=== PATIENT | female | born 1945 | race Caucasian/White ===

== ENCOUNTER 2018-08-20 07:33 | Emergency (ER) | payer MEDICARE, MEDICAID ==
[~2018-08-20] VITALS: Ht 160 cm; Wt 58.2 kg
[~2018-08-20 07:33] MED LIST: ASPI-974 PO; HYDR-4353 PO; IBUP-1984 PO
[2018-08-20] MEDS ORDERED: proparacaine 0.5% ophthalmic drops 15ml EACHEYE ONE (08:00)
[2018-08-20] MEDS ORDERED: ACYC-202 PO (09:16)
[2018-08-20] MEDS ORDERED: DEXT15DR7 RIGHTEYE (09:16)
[2018-08-20] MEDS ORDERED: ERYT1OIN6 RIGHTEYE (09:16)
[2018-08-20 09:35] VITALS: BP 176/87
[2018-08-23] MEDS ORDERED: CEPH500C5 PO (10:39)
== END 2018-08-20 09:38 | disposition home or self-care (01) ==
LOC: ER 07:34
DX: H57.11 Ocular pain, right eye (principal); G89.29 Other chronic pain; Z88.5 Allergy status to narcotic agent; Z79.82 Long term (current) use of aspirin; Z79.2 Long term (current) use of antibiotics; Z79.899 Other long term (current) drug therapy
CPT/HCPCS: 99283

== ENCOUNTER 2018-08-21 07:50 | Emergency (ER) | payer MEDICARE, MEDICAID ==
[~2018-08-21] VITALS: Ht 160 cm; Wt 58.2 kg
[~2018-08-21 07:50] MED LIST changes: +ACYC-202 PO; +DEXT15DR7 RIGHTEYE; +ERYT1OIN6 RIGHTEYE
--- NOTE | 2018-08-21 08:05 | NUR ---
PATIENT STATES SHE WAS HERE YESTERDAY WITH PAIN, REDNESS, SWELLING IN RIGHT EYE. STATES MEDS ARE CAUSING NEGATIVE SIDE EFFECTS AND EYE IS NOT IMPROVING. REDNESS TO SCLERA BILAT, INCREASED IN RIGHT EYE. UNABLE TO TOLERATE ERYTHROMYCIN OINT AFTER USING TWICE YESTERDAY.
[2018-08-21 08:18] VITALS: BP 168/93
[2018-08-23] MEDS ORDERED: CEPH500C5 PO (10:39)
== END 2018-08-21 08:20 | disposition home or self-care (01) ==
LOC: ER 07:50
DX: H10.9 Unspecified conjunctivitis (principal); G89.29 Other chronic pain; M19.90 Unspecified osteoarthritis, unspecified site; Z88.5 Allergy status to narcotic agent; Z79.82 Long term (current) use of aspirin
CPT/HCPCS: 99283

== ENCOUNTER 2020-07-27 09:39 | Emergency (ER) | payer MEDICARE, MEDICAID ==
[~2020-07-27] VITALS: Ht 160 cm; Wt 54.5 kg
[~2020-07-27 09:39] MED LIST changes: -ACYC-202 PO; -ERYT1OIN6 RIGHTEYE
[2020-07-27 11:50] LABS: BASOPHILS # (AUTO) 0.1 X10'3 (0-0.2); BASOPHILS % (AUTO) 1.3 % (0-1); EOSINOPHILS # (AUTO) 0.1 X10'3 (0-0.9); EOSINOPHILS % (AUTO) 1.9 % (0-6); HEMATOCRIT 44.1 % (35.0-45.0); HEMOGLOBIN 14.6 g/dl (12.0-16.0); LYMPHOCYTES # (AUTO) 1.8 X10'3 (1.1-4.8); LYMPHOCYTES % (AUTO) 32.3 % (21-51); MEAN CORPUSCULAR HEMOGLOBIN 29.8 PG (27.0-31.0); MEAN CORPUSCULAR HGB CONC 33.2 g/dL (33.0-36.5); MEAN CORPUSCULAR VOLUME 89.7 FL (78-98); MEAN PLATELET VOLUME 8.2 FL (7.4-10.4); MONOCYTES # (AUTO) 0.5 X10'3 (0-0.9); MONOCYTES % (AUTO) 8.9 % (2-12); NEUTROPHILS % (AUTO) 55.6 % (42-75); PLATELET COUNT 289 X10'3 (140-440); RED BLOOD COUNT 4.91 X10'6 (4.20-5.60); RED CELL DISTRIBUTION WIDTH 14.6 % (11.5-14.5); WHITE BLOOD COUNT 5.4 X10'3 (4.5-11.0)
[2020-07-27 12:04] LABS: ALANINE AMINOTRANSFERASE 30 U/L (12-78); ALBUMIN 4.2 G/DL (3.4-5.0); ALKALINE PHOSPHATASE 96 IU/L (46-116); ANION GAP 10 (8-16); ASPARTATE AMINO TRANSFERASE 24 U/L (10-37); BILIRUBIN,TOTAL 0.3 MG/DL (0.1-1.0); BLOOD UREA NITROGEN 18 MG/DL (7-18); BUN/CREATININE RATIO 35.3 (6.6-38.0); CALCIUM 9.8 MG/DL (8.5-10.1); CHLORIDE 105 MMOL/L (99-107); CREATININE 0.51 MG/DL (0.40-0.90); GLUCOSE 92 MG/DL (70-104); POTASSIUM 3.8 MMOL/L (3.5-5.1); SODIUM 143 MMOL/L (135-145); TOTAL CARBON DIOXIDE 27.8 MMOL/L (24-32); TOTAL PROTEIN 8.5 G/DL (6.4-8.2); eGFR > 90 ML/MIN
[2020-07-27 12:05] VITALS: BP 174/112
[2020-07-27] MEDS ORDERED: DOXY-243 PO (12:54)
== END 2020-07-27 13:21 | disposition home or self-care (01) ==
LOC: ER 09:39
DX: S81.801A Unspecified open wound, right lower leg, initial encounter (principal); M19.90 Unspecified osteoarthritis, unspecified site; G89.29 Other chronic pain; Z88.5 Allergy status to narcotic agent; Z79.82 Long term (current) use of aspirin; Z79.899 Other long term (current) drug therapy; X58.XXXA Exposure to other specified factors, initial encounter; Y93.89 Activity, other specified; Y92.89 Other specified places as the place of occurrence of the external cause; Y99.8 Other external cause status
CPT/HCPCS: 36415; 73590; 80053; 83605; 84145; 85025; 87070; 87077; 87186; 99284

== ENCOUNTER → 2020-08-16 | Outpatient (CLI) | payer MEDICARE, MEDICAID ==
[~2020-08-16] MED LIST changes: +LIDOcaine 2% 5ml jelly ONE
== END | disposition home or self-care (01) ==
LOC: WOUND CARE 07:23
PROVIDERS: ATTEND Nurse Practitioner
DX: S80.811D Abrasion, right lower leg, subsequent encounter (principal); L97.212 Non-pressure chronic ulcer of right calf with fat layer exposed; M19.90 Unspecified osteoarthritis, unspecified site; G89.29 Other chronic pain; H26.9 Unspecified cataract; F40.240 Claustrophobia; Z79.899 Other long term (current) drug therapy; Z79.82 Long term (current) use of aspirin; X58.XXXD Exposure to other specified factors, subsequent encounter
CPT/HCPCS: 11042

== ENCOUNTER 2021-10-07 10:40 | Emergency (ER) | payer MEDICARE, MEDICAID ==
[~2021-10-07] VITALS: Ht 157.5 cm; Wt 59.0 kg
[~2021-10-07 10:40] MED LIST changes: -LIDOcaine 2% 5ml jelly ONE
[2021-10-07 11:19] VITALS: BP 164/99
[2021-10-07] MEDS ORDERED: HYDROcodone/acetaminophen 10/325mg tab PO ONE (11:55)
[2021-10-07] MEDS ORDERED: HYDR-3972 PO (12:20)
[2021-10-08] MEDS ORDERED: IBUP-24 PO (17:05)
== END 2021-10-07 12:42 | disposition home or self-care (01) ==
LOC: ER 10:41
DX: M25.561 Pain in right knee (principal); M25.461 Effusion, right knee; M19.90 Unspecified osteoarthritis, unspecified site; G89.29 Other chronic pain; F17.200 Nicotine dependence, unspecified, uncomplicated; Z88.5 Allergy status to narcotic agent; Z79.82 Long term (current) use of aspirin; Z79.899 Other long term (current) drug therapy
CPT/HCPCS: 73564; 99284

== ENCOUNTER 2021-10-08 09:51 | Inpatient (IN) | payer MEDICARE, MEDICAID ==
[~2021-10-08] VITALS: Ht 157.5 cm; Wt 59.9 kg
[~2021-10-08 09:51] MED LIST changes: +HYDR-3972 PO
--- NOTE | 2021-10-08 10:40 | NUR ---
DR DORAN AT BEDSIDE .
[2021-10-08] MEDS ORDERED: normal saline 1000ML IV soln IVB ONE (10:50)
--- NOTE | 2021-10-08 11:17 | NUR ---
to ct scan.
[2021-10-08] MEDS: morphine 2 MG/ML inj. syringe IV PRN ×2 (11:53→13:33)
[2021-10-08 12:13] LABS: BASOPHILS # (AUTO) 0.1 X10'3 (0-0.2); BASOPHILS % (AUTO) 0.5 % (0-1); EOSINOPHILS % (AUTO) 0.1 % (0-6); HEMATOCRIT 44.4 % (35.0-45.0); HEMOGLOBIN 15.1 g/dl (12.0-16.0); LYMPHOCYTES # (AUTO) 0.5 X10'3 (1.1-4.8); MEAN CORPUSCULAR HEMOGLOBIN 29.8 PG (27.0-31.0); MEAN CORPUSCULAR VOLUME 87.7 FL (78-98); MEAN PLATELET VOLUME 8.8 FL (7.4-10.4); MONOCYTES # (AUTO) 0.7 X10'3 (0-0.9); MONOCYTES % (AUTO) 2.8 % (2-12); NEUTROPHILS # (AUTO) 23.2 X10'3 (1.8-7.7); NEUTROPHILS % (AUTO) 94.6 % (42-75); PLATELET COUNT 396 X10'3 (140-440); RED BLOOD COUNT 5.06 X10'6 (4.20-5.60); RED CELL DISTRIBUTION WIDTH 14.2 % (11.5-14.5); WHITE BLOOD COUNT 24.5 X10'3 (4.5-11.0)
[2021-10-08 12:31] LABS: ALANINE AMINOTRANSFERASE 308 U/L (12-78); ALKALINE PHOSPHATASE 155 IU/L (46-116); AMYLASE 15 U/L (25-115); ANION GAP 11 (8-16); ASPARTATE AMINO TRANSFERASE 376 U/L (10-37); BILIRUBIN,TOTAL 0.9 MG/DL (0.1-1.0); BLOOD UREA NITROGEN 34 MG/DL (7-18); CALCIUM 10.2 MG/DL (8.5-10.1); CHLORIDE 100 MMOL/L (99-107); CREATININE 0.63 MG/DL (0.40-0.90); GLUCOSE 102 MG/DL (70-104); POTASSIUM 3.3 MMOL/L (3.5-5.1); SODIUM 135 MMOL/L (135-145); TOTAL CARBON DIOXIDE 23.8 MMOL/L (24-32); TOTAL PROTEIN 8.1 G/DL (6.4-8.2); eGFR > 90 ML/MIN
[2021-10-08 12:47] LABS: ALBUMIN 2.5 G/DL (3.4-5.0); ALBUMIN/GLOBULIN RATIO 0.4 (1.1-1.5)
[2021-10-08] MEDS ORDERED: TETanus/Pertussis (Acell)/Diphther VAC/PF (Tdap-Adult) 0.5ml syringe IMVAC ONE (12:50)
[2021-10-08 13:28] LABS: CLARITY,URINE SLIGHTLY CLOUDY (Clear); COLOR,URINE YELLOW (Yellow); GLUCOSE, URINE NEGATIVE (Neg); KETONES,URINE 15 mg/dl (Neg); LEUKOCYTE ESTERASE ,URINE NEGATIVE (Neg); NITRITES, URINE NEGATIVE (Neg); OCCULT BLOOD,URINE LARGE (Neg); PROTEIN,URINE 30 mg/dl (Neg)
[2021-10-08 13:29] LABS: UA COLLECTION TYPE VOIDED
[2021-10-08 13:32] LABS: WBC,URINE 0-4 /HPF (0-4)
[2021-10-08 13:33] LABS: AMORPHOUS URATES 2+; BACTERIA,URINE FEW /HPF (Neg); MUCUS STRANDS FEW /LPF (Neg); SQUAMOUS EPITHELIAL CELL,UR MANY /LPF (FEW)
[2021-10-08] MEDS ORDERED: potassium Cl 20 mEq SR tablet PO PRN ×2 (15:05)
[2021-10-08] MEDS ORDERED: magnesium 2GM in 50ml NS 50 ML IV PRN (15:05)
[2021-10-08] MEDS ORDERED: acetaminophen 650mg rectal suppository RC PRN (15:05)
[2021-10-08] MEDS ORDERED: PERFLUTREN PROTEIN-A MICROSPHR (Optison) 0.22 MG/ML 3ML VIAL IV ONE (15:05)
[2021-10-08] MEDS ORDERED: potassium CL 10mEq/100ml bag 100 ML IV PRN (15:05)
[2021-10-08] MEDS ORDERED: ondansetron/PF 4mg/2ml inj IV PRN (15:05)
[2021-10-08] MEDS ORDERED: magnesium hydroxide 30ml (MOM) UD suspension PO PRN (15:05)
[2021-10-08] MEDS ORDERED: morphine 2 MG/ML inj. syringe IV PRN ×2 (15:05)
[2021-10-08] MEDS ORDERED: HYDROcodone/acetaminophen 5mg/325mg tablet PO PRN (15:05)
[2021-10-08] MEDS ORDERED: mag hydrox/Alum hydrox/simeth 30ml oral suspension PO PRN (15:05)
[2021-10-08] MEDS ORDERED: magnesium 4gm in 100ml NS 100 ML IV PRN (15:05)
[2021-10-08] MEDS ORDERED: bisacodyl 10mg suppository rectal RC PRN (15:05)
[2021-10-08] MEDS ORDERED: acetaminophen 325mg tablet PO PRN ×2 (15:05)
[2021-10-08] MEDS ORDERED: diphenhydrAMINE 25mg capsule PO PRN (15:05)
[2021-10-08] MEDS ORDERED: magnesium Cl slow-release 64mg tablet PO PRN (15:05)
--- NOTE | 2021-10-08 15:28 | NUR ---
dr gay at bedside.
[2021-10-08] MEDS ORDERED: iohexol 300mg/ml 100ml inj. ONE (15:33)
[2021-10-08 15:36] LABS: HEMOGLOBIN A1C 5.7 % (4.5-6.2)
--- NOTE | 2021-10-08 16:00 | NUR ---
TO CT SCAN.
[2021-10-08] MEDS: vancomycin/NS 1 GM ADD-VANTAGE 250 ML IV SCH (16:21)
[2021-10-08] MEDS: normal saline 1000ml 1,000 ML IV SCH (16:22)
[2021-10-08] MEDS ORDERED: IBUP-24 PO (17:05)
[2021-10-08] MEDS: lactose-reduced food (Ensure Enlive) - 237ml bottle PO SCH ×2 (18:00→21:37)
[2021-10-08] MEDS: piperacillin/tazo 3.375gm/50ml 50 ML IV SCH (18:02)
[2021-10-08] MEDS: azithromycin 250mg tablet PO SCH (18:08)
[2021-10-08] MEDS: ipratropium/albuterol 3ml nebule NEB SCH ×2 (18:55→23:00)
[2021-10-08] MEDS: K and/or MAG REPLACEMENT MC SCH (20:00)
[2021-10-08] MEDS: docusate sod 100mg capsule PO SCH (20:00)
[2021-10-08] MEDS: heparin, porcine 5000 units/ml vial SQ SCH (20:34)
[2021-10-08 23:15] VITALS: BP 115/54
[2021-10-08] MEDS: HYDROcodone/acetaminophen 10/325mg tab PO PRN (23:38)
[2021-10-09] MEDS: piperacillin/tazo 3.375gm/50ml 50 ML IV SCH ×3 (00:47→19:47)
[2021-10-09] MEDS: lactose-reduced food (Ensure Enlive) - 237ml bottle PO SCH ×2 (01:12→17:59)
[2021-10-09] MEDS: normal saline 1000ml 1,000 ML IV SCH ×2 (01:14→11:09)
[2021-10-09 02:00] VITALS: BP 143/64
[2021-10-09] MEDS: ipratropium/albuterol 3ml nebule NEB SCH ×6 (02:53→23:00)
[2021-10-09 06:00] VITALS: BP 125/65
--- NOTE | 2021-10-09 06:18 | NUR ---
REPORT GIVEN TO HENRY ARGUELLO
[2021-10-09 07:00] LABS: BASOPHILS % (AUTO) 0.1 % (0-1); EOSINOPHILS % (AUTO) 0.2 % (0-6); HEMATOCRIT 34.6 % (35.0-45.0); HEMOGLOBIN 11.5 g/dl (12.0-16.0); LYMPHOCYTES # (AUTO) 1.1 X10'3 (1.1-4.8); LYMPHOCYTES % (AUTO) 8.6 % (21-51); MEAN CORPUSCULAR HEMOGLOBIN 29.1 PG (27.0-31.0); MEAN CORPUSCULAR HGB CONC 33.4 g/dL (33.0-36.5); MEAN CORPUSCULAR VOLUME 87.2 FL (78-98); MEAN PLATELET VOLUME 8.4 FL (7.4-10.4); MONOCYTES # (AUTO) 0.7 X10'3 (0-0.9); NEUTROPHILS # (AUTO) 10.6 X10'3 (1.8-7.7); NEUTROPHILS % (AUTO) 85.1 % (42-75); PLATELET COUNT 320 X10'3 (140-440); RED BLOOD COUNT 3.96 X10'6 (4.20-5.60); RED CELL DISTRIBUTION WIDTH 13.7 % (11.5-14.5); WHITE BLOOD COUNT 12.4 X10'3 (4.5-11.0)
[2021-10-09 07:14] LABS: ALANINE AMINOTRANSFERASE 219 U/L (12-78); ALBUMIN 1.7 G/DL (3.4-5.0); ALBUMIN/GLOBULIN RATIO 0.4 (1.1-1.5); ALKALINE PHOSPHATASE 102 IU/L (46-116); ANION GAP 5 (8-16); ASPARTATE AMINO TRANSFERASE 223 U/L (10-37); BILIRUBIN,TOTAL 0.4 MG/DL (0.1-1.0); BLOOD UREA NITROGEN 20 MG/DL (7-18); BUN/CREATININE RATIO 41.7 (6.6-38.0); CALCIUM 8.9 MG/DL (8.5-10.1); CHLORIDE 108 MMOL/L (99-107); CHOLESTEROL 101 MG/DL (0-200); CREATININE 0.48 MG/DL (0.40-0.90); GLUCOSE 114 MG/DL (70-104); HDL CHOLESTEROL 34 MG/DL (35-60); LDL CHOLESTEROL 55 MG/DL (50-100); MAGNESIUM 1.9 MG/DL (1.5-2.4); PHOSPHORUS 3.1 MG/DL (2.3-4.5); POTASSIUM 4.1 MMOL/L (3.5-5.1); SODIUM 141 MMOL/L (135-145); TOTAL PROTEIN 5.6 G/DL (6.4-8.2); TRIGLYCERIDES 54 MG/DL (20-135); eGFR > 90 ML/MIN
[2021-10-09] MEDS: pantoprazole 40mg Tablet.DR PO SCH (07:54)
[2021-10-09] MEDS: docusate sod 100mg capsule PO SCH ×2 (08:00→19:39)
[2021-10-09] MEDS: heparin, porcine 5000 units/ml vial SQ SCH ×2 (08:24→19:38)
[2021-10-09] MEDS: K and/or MAG REPLACEMENT MC SCH ×2 (08:29→19:40)
[2021-10-09 11:00] VITALS: BP 123/60
--- NOTE | 2021-10-09 11:11 | NUR ---
Initial: Pt admitted w/ sepsis, BLE cellulitis and PNA per EMR. Pt appeared cachectic per MD note. Observed pt at bedside who did not appear to have visible signs of muscle or fat wasting. Current scaled wt is greater than that wts dating back from 2016. Pt states she had gained wt over the past year from eating a lot of oreos, though has cut back on the cookies and has started to lose that wt. Pt reports a recent decline in appetite though it is starting to come back; states she ate 100% of breakfast and 100% of Ensure Enlive (which has been ordered TID). Pt noted w/ BLE 2+ edema, though likely r/t cellulitis. Communicated w/ RN recommendation to liberalize to Regular diet given no cardiac hx in EMR. Will continue to monitor. Recs: 1. Liberalize to Regular diet; no cardiac hx in EMR, lipids WNL 2. Ensure Enlive TID per MD 3. Bowel care per rx 4. Weekly wts Addendum: 10/09/21 at [address] Amended: Links added.
[2021-10-09 15:00] VITALS: BP 115/61
[2021-10-09] MEDS: vancomycin/NS 1 GM ADD-VANTAGE 250 ML IV SCH (16:00)
[2021-10-09] MEDS: azithromycin 250mg tablet PO SCH (17:57)
[2021-10-09 18:30] VITALS: BP 125/48
[2021-10-09 22:00] VITALS: BP 139/66
[2021-10-10 02:00] VITALS: BP 138/96
[2021-10-10] MEDS: piperacillin/tazo 3.375gm/50ml 50 ML IV SCH ×4 (02:17→23:41)
[2021-10-10] MEDS: normal saline 1000ml 1,000 ML IV SCH ×3 (02:17→17:16)
[2021-10-10] MEDS: HYDROcodone/acetaminophen 10/325mg tab PO PRN ×4 (02:30→20:32)
[2021-10-10] MEDS: ipratropium/albuterol 3ml nebule NEB SCH ×6 (02:52→22:50)
[2021-10-10 05:58] LABS: BASOPHILS % (AUTO) 0.1 % (0-1); EOSINOPHILS # (AUTO) 0.1 X10'3 (0-0.9); EOSINOPHILS % (AUTO) 0.7 % (0-6); HEMATOCRIT 33.9 % (35.0-45.0); HEMOGLOBIN 11.3 g/dl (12.0-16.0); LYMPHOCYTES # (AUTO) 1.3 X10'3 (1.1-4.8); LYMPHOCYTES % (AUTO) 13.4 % (21-51); MEAN CORPUSCULAR HEMOGLOBIN 29.7 PG (27.0-31.0); MEAN CORPUSCULAR HGB CONC 33.4 g/dL (33.0-36.5); MEAN CORPUSCULAR VOLUME 88.7 FL (78-98); MEAN PLATELET VOLUME 8.4 FL (7.4-10.4); MONOCYTES # (AUTO) 0.6 X10'3 (0-0.9); MONOCYTES % (AUTO) 6.1 % (2-12); NEUTROPHILS # (AUTO) 7.4 X10'3 (1.8-7.7); NEUTROPHILS % (AUTO) 79.7 % (42-75); PLATELET COUNT 346 X10'3 (140-440); RED BLOOD COUNT 3.83 X10'6 (4.20-5.60); RED CELL DISTRIBUTION WIDTH 14.1 % (11.5-14.5); WHITE BLOOD COUNT 9.3 X10'3 (4.5-11.0)
[2021-10-10 06:00] VITALS: BP 141/69
--- NOTE | 2021-10-10 06:11 | NUR ---
Problems reprioritized. Patient report given, questions answered & plan of care reviewed with Lynn DU.
[2021-10-10 06:22] LABS: ALANINE AMINOTRANSFERASE 238 U/L (12-78); ALBUMIN 1.5 G/DL (3.4-5.0); ALBUMIN/GLOBULIN RATIO 0.4 (1.1-1.5); ALKALINE PHOSPHATASE 93 IU/L (46-116); ANION GAP 8 (8-16); ASPARTATE AMINO TRANSFERASE 197 U/L (10-37); BILIRUBIN,TOTAL 0.4 MG/DL (0.1-1.0); BLOOD UREA NITROGEN 13 MG/DL (7-18); BUN/CREATININE RATIO 26.5 (6.6-38.0); CALCIUM 8.1 MG/DL (8.5-10.1); CHLORIDE 105 MMOL/L (99-107); CREATININE 0.49 MG/DL (0.40-0.90); GLUCOSE 99 MG/DL (70-104); MAGNESIUM 1.9 MG/DL (1.5-2.4); PHOSPHORUS 2.9 MG/DL (2.3-4.5); SODIUM 140 MMOL/L (135-145); TOTAL CARBON DIOXIDE 27.4 MMOL/L (24-32); TOTAL PROTEIN 5.6 G/DL (6.4-8.2); eGFR > 90 ML/MIN
[2021-10-10] MEDS: pantoprazole 40mg Tablet.DR PO SCH (07:02)
[2021-10-10] MEDS: docusate sod 100mg capsule PO SCH ×2 (07:03→20:00)
[2021-10-10 07:14] LABS: TOTAL CELLS COUNTED 100
[2021-10-10 07:15] LABS: PLATELET ESTIMATE NORMAL
[2021-10-10] MEDS: heparin, porcine 5000 units/ml vial SQ SCH ×2 (07:18→20:18)
[2021-10-10] MEDS: K and/or MAG REPLACEMENT MC SCH ×2 (08:00→20:00)
[2021-10-10] MEDS: lactose-reduced food (Ensure Enlive) - 237ml bottle PO SCH ×3 (08:00→17:16)
[2021-10-10 11:00] VITALS: BP 165/85
--- NOTE | 2021-10-10 12:59 | NUR ---
PRESSURE ULCER EDUCATION: DEFINITION: A pressure ulcer is an area of skin that breaks down when you stay in one position too long. The constant pressure against the skin reduces the blood flow to that area and the affected tissue dies. CAUSES: "Being bedridden or in a wheelchair "Fragile skin "Having a chronic condition, such as diabetes or vascular disease "Inability to move certain parts of your body without assistance "Older age "Incontinence of urine or stool SYMPTOMS: "A reddened area that DOES NOT turn white when pressed on - this can be the beginning of a pressure ulcer "A blister, deep sore or a crater - these can be advanced pressure ulcers FIRST AID: "Relieve the pressure on this area "Keep the area clean and dry "Call your primary doctor if you see any of the above symptoms "DO NOT massage the area "DO NOT use a donut shaped or ring shaped pillow- these actually interfere with the blood flow and cause complications PREVENTION: "Check for pressure ulcers everyday "Change position at least every two hours to relieve pressure "Use items that help relieve pressure- pillows, sheepskin, foam padding, and powders. "Keep skin clean and dry "Eat healthy well balanced meals "Exercise daily IF YOU SEE ANY OF THESE SYMPTOMS WHILE IN THE HOSPITAL - TELL YOUR NURSE IMMEDIATELY. IF YOU SEE ANY OF THESE SYMPTOMS WHILE AT HOME OR HAVE ANY QUESTIONS OR CONCERNS ABOUT PRESSURE ULCERS - CALL YOUR PRIMARY DOCTOR IMMEDIATELY. Addendum: 10/10/21 at 1259 by Amanda Feng LVN Amended: Links added.
--- NOTE | 2021-10-10 13:06 | NUR ---
Physical Therapy at bedside. Patient sitting at side of bed conversing with staff.
[2021-10-10 15:00] VITALS: BP 139/71
[2021-10-10] MEDS: vancomycin/NS 1 GM ADD-VANTAGE 250 ML IV SCH (16:15)
[2021-10-10] MEDS: azithromycin 250mg tablet PO SCH (17:15)
[2021-10-10 18:30] VITALS: BP 140/76
[2021-10-10] MEDS: mineral oil/petrolatum, white cream 113gm jar TP SCH (20:17)
[2021-10-10 22:00] VITALS: BP 106/58
[2021-10-11 02:00] VITALS: BP 140/83
--- NOTE | 2021-10-11 02:31 | NUR ---
Reported by Tele that patient had a run of 6 beats V-tach at 0217, paged the hospitalist Dr Rooney at this time to inform him of the findings. Patient is sleeping at this time. No C/O pain or discomfort noted. VS WNL. Will continue to monitor.
[2021-10-11] MEDS: ipratropium/albuterol 3ml nebule NEB SCH ×6 (03:00→23:00)
--- NOTE | 2021-10-11 03:30 | NUR ---
Student nurse moved pt from bedside chair back to bed in high fowlers position. Student nurse changed purwick and emptied 975 mLs of urine. Educated pt on sepsis including signs and symptoms and when to seek medical attention. Emphasized importance of finishing all antibiotics prescribed. Pt verbalized good understanding at this time and was given written paperwork with education material.
[2021-10-11] MEDS: normal saline 1000ml 1,000 ML IV SCH ×3 (03:41→23:05)
[2021-10-11 05:55] LABS: BASOPHILS % (AUTO) 0.2 % (0-1); EOSINOPHILS # (AUTO) 0.1 X10'3 (0-0.9); EOSINOPHILS % (AUTO) 0.8 % (0-6); HEMOGLOBIN 13.2 g/dl (12.0-16.0); LYMPHOCYTES # (AUTO) 1.1 X10'3 (1.1-4.8); LYMPHOCYTES % (AUTO) 12.1 % (21-51); MEAN CORPUSCULAR HGB CONC 32.1 g/dL (33.0-36.5); MEAN CORPUSCULAR VOLUME 90.4 FL (78-98); MEAN PLATELET VOLUME 8.1 FL (7.4-10.4); MONOCYTES # (AUTO) 0.6 X10'3 (0-0.9); MONOCYTES % (AUTO) 6.9 % (2-12); NEUTROPHILS # (AUTO) 7.1 X10'3 (1.8-7.7); PLATELET COUNT 386 X10'3 (140-440); RED BLOOD COUNT 4.54 X10'6 (4.20-5.60); RED CELL DISTRIBUTION WIDTH 14.4 % (11.5-14.5); WHITE BLOOD COUNT 8.9 X10'3 (4.5-11.0)
[2021-10-11 06:00] VITALS: BP 115/82
--- NOTE | 2021-10-11 06:30 | NUR ---
Patient in room PCU 3011. I have received report from ANA LAURA Teague and had the opportunity to ask questions and assume patient care.
[2021-10-11] MEDS ORDERED: iohexol 300mg/ml 100ml inj. ONE (07:37)
--- NOTE | 2021-10-11 07:58 | NUR ---
Page Accepted Message: Room: [facility]: Kannan: Per the noc shift nurse, the pt had a six beat run of vtach at 0217. Susanna, RN [phone] Custom Responses: Transaction number: [id number]
[2021-10-11] MEDS: K and/or MAG REPLACEMENT MC SCH ×2 (08:00→20:00)
[2021-10-11] MEDS: docusate sod 100mg capsule PO SCH ×2 (08:00→20:00)
[2021-10-11 08:09] LABS: ALANINE AMINOTRANSFERASE 199 U/L (12-78); ALBUMIN/GLOBULIN RATIO 0.5 (1.1-1.5); ALKALINE PHOSPHATASE 106 IU/L (46-116); ANION GAP 6 (8-16); ASPARTATE AMINO TRANSFERASE 109 U/L (10-37); BILIRUBIN,TOTAL 0.7 MG/DL (0.1-1.0); BLOOD UREA NITROGEN 8 MG/DL (7-18); BUN/CREATININE RATIO 13.8 (6.6-38.0); CALCIUM 8.8 MG/DL (8.5-10.1); CHLORIDE 103 MMOL/L (99-107); CREATININE 0.58 MG/DL (0.40-0.90); GLUCOSE 92 MG/DL (70-104); MAGNESIUM 2.1 MG/DL (1.5-2.4); PHOSPHORUS 4.1 MG/DL (2.3-4.5); POTASSIUM 3.9 MMOL/L (3.5-5.1); SODIUM 141 MMOL/L (135-145); TOTAL CARBON DIOXIDE 32.1 MMOL/L (24-32); TOTAL PROTEIN 6.4 G/DL (6.4-8.2); eGFR > 90 ML/MIN
[2021-10-11] MEDS: HYDROcodone/acetaminophen 10/325mg tab PO PRN (08:40)
[2021-10-11] MEDS: pantoprazole 40mg Tablet.DR PO SCH (08:41)
[2021-10-11] MEDS: piperacillin/tazo 3.375gm/50ml 50 ML IV SCH ×2 (08:43→20:00)
[2021-10-11] MEDS: heparin, porcine 5000 units/ml vial SQ SCH ×2 (08:43→20:36)
[2021-10-11] MEDS: lactose-reduced food (Ensure Enlive) - 237ml bottle PO SCH ×3 (08:45→18:04)
[2021-10-11] MEDS: mineral oil/petrolatum, white cream 113gm jar TP SCH ×2 (08:46→20:38)
[2021-10-11 10:05] LABS: HBSAG SCREEN Negative (Negative); HEP A AB, IGM Negative (Negative); HEPATITIS C ANTIBODY <0.1 s/co ratio (0.0-0.9)
[2021-10-11 11:00] VITALS: BP 129/68
[2021-10-11 15:00] VITALS: BP 134/70
[2021-10-11] MEDS ORDERED: VANCOMYCIN LEVEL IV ONE (15:30)
[2021-10-11] MEDS: vancomycin/NS 1 GM ADD-VANTAGE 250 ML IV SCH (15:58)
[2021-10-11 16:09] VITALS: BP 134/70
--- NOTE | 2021-10-11 16:27 | NUR ---
Student documentation: I have reviewed and agree with all interventions, assessments performed and documented by Martha, supervisor public health nursing.
[2021-10-11] MEDS: azithromycin 250mg tablet PO SCH (17:30)
[2021-10-11 18:00] VITALS: BP 125/80
--- NOTE | 2021-10-11 18:16 | NUR ---
Problems reprioritized. Patient report given, questions answered & plan of care reviewed with ANA LAURA Page.
[2021-10-12] MEDS: ipratropium/albuterol 3ml nebule NEB SCH ×3 (02:46→11:00)
[2021-10-12 06:00] VITALS: BP 157/77
--- NOTE | 2021-10-12 06:28 | NUR ---
Patient in room PCU 3011. I have received report from Mildred DU Traveler and had the opportunity to ask questions and assume patient care.
[2021-10-12 06:41] LABS: BASOPHILS % (AUTO) 0.3 % (0-1); EOSINOPHILS # (AUTO) 0.1 X10'3 (0-0.9); EOSINOPHILS % (AUTO) 1.3 % (0-6); HEMATOCRIT 36.4 % (35.0-45.0); HEMOGLOBIN 12.2 g/dl (12.0-16.0); LYMPHOCYTES # (AUTO) 1.1 X10'3 (1.1-4.8); LYMPHOCYTES % (AUTO) 13.7 % (21-51); MEAN CORPUSCULAR HEMOGLOBIN 29.5 PG (27.0-31.0); MEAN CORPUSCULAR HGB CONC 33.6 g/dL (33.0-36.5); MEAN CORPUSCULAR VOLUME 87.7 FL (78-98); MEAN PLATELET VOLUME 7.8 FL (7.4-10.4); MONOCYTES # (AUTO) 0.6 X10'3 (0-0.9); MONOCYTES % (AUTO) 7.4 % (2-12); NEUTROPHILS # (AUTO) 6.2 X10'3 (1.8-7.7); NEUTROPHILS % (AUTO) 77.3 % (42-75); PLATELET COUNT 461 X10'3 (140-440); RED BLOOD COUNT 4.14 X10'6 (4.20-5.60); RED CELL DISTRIBUTION WIDTH 13.9 % (11.5-14.5); WHITE BLOOD COUNT 8.1 X10'3 (4.5-11.0)
[2021-10-12 07:05] LABS: ALANINE AMINOTRANSFERASE 177 U/L (12-78); ALBUMIN 1.9 G/DL (3.4-5.0); ALBUMIN/GLOBULIN RATIO 0.4 (1.1-1.5); ALKALINE PHOSPHATASE 119 IU/L (46-116); ANION GAP 8 (8-16); ASPARTATE AMINO TRANSFERASE 103 U/L (10-37); BILIRUBIN,TOTAL 0.6 MG/DL (0.1-1.0); BLOOD UREA NITROGEN 8 MG/DL (7-18); CALCIUM 8.9 MG/DL (8.5-10.1); CHLORIDE 106 MMOL/L (99-107); CREATININE 0.47 MG/DL (0.40-0.90); GLUCOSE 111 MG/DL (70-104); MAGNESIUM 2.2 MG/DL (1.5-2.4); PHOSPHORUS 3.5 MG/DL (2.3-4.5); POTASSIUM 3.9 MMOL/L (3.5-5.1); SODIUM 143 MMOL/L (135-145); TOTAL CARBON DIOXIDE 28.6 MMOL/L (24-32); TOTAL PROTEIN 6.4 G/DL (6.4-8.2); eGFR > 90 ML/MIN
[2021-10-12] MEDS: piperacillin/tazo 3.375gm/50ml 50 ML IV SCH ×2 (07:34)
[2021-10-12] MEDS: pantoprazole 40mg Tablet.DR PO SCH (07:34)
[2021-10-12] MEDS: heparin, porcine 5000 units/ml vial SQ SCH (07:35)
[2021-10-12] MEDS: docusate sod 100mg capsule PO SCH (07:36)
[2021-10-12] MEDS: K and/or MAG REPLACEMENT MC SCH (07:36)
[2021-10-12] MEDS: mineral oil/petrolatum, white cream 113gm jar TP SCH (07:40)
[2021-10-12 07:41] LABS: PLATELET ESTIMATE INCREASED; TOTAL CELLS COUNTED 100
[2021-10-12 07:42] LABS: LARGE PLATELETS FEW
[2021-10-12 07:44] LABS: SCHISTOCYTES FEW
[2021-10-12] MEDS: lactose-reduced food (Ensure Enlive) - 237ml bottle PO SCH ×2 (08:00→09:04)
[2021-10-12] MEDS: normal saline 1000ml 1,000 ML IV SCH (09:05)
[2021-10-12 11:00] VITALS: BP 125/66
[2021-10-12] MEDS ORDERED: vancomycin inj. 750 MG in normal saline 250ml IV soln 250 ML IV SCH (14:00)
--- NOTE | 2021-10-12 14:35 | NUR ---
[facility] report given to Dayanna Logan, all questions answered and details of wounds care as well. Pt's daughter called to advise of pts transferred. package given to ambulance/ stunt driver.
[2021-10-14] MEDS ORDERED: VANCOMYCIN LEVEL IV ONE (01:30)
== END 2021-10-12 14:43 | DRG 871 ==
LOC: ER 09:51 → ED HOLD 15:14 → PCU 3S 23:15
PROVIDERS: ADMIT Family Medicine; ATTEND Family Medicine
PROC: 3E0234Z Introduction of Serum, Toxoid and Vaccine into Muscle, Percutaneous Approach (ICD-10-PCS; principal; 2021-10-08)
PROC: BW251ZZ Computerized Tomography (CT Scan) of Chest, Abdomen and Pelvis using Low Osmolar Contrast (ICD-10-PCS; 2021-10-08)
PROC: BW241ZZ Computerized Tomography (CT Scan) of Chest and Abdomen using Low Osmolar Contrast (ICD-10-PCS; 2021-10-11)
DX: A41.9 Sepsis, unspecified organism (principal); E43 Unspecified severe protein-calorie malnutrition; J18.9 Pneumonia, unspecified organism; L03.115 Cellulitis of right lower limb; L03.116 Cellulitis of left lower limb; T74.01XA Adult neglect or abandonment, confirmed, initial encounter; E87.6 Hypokalemia; M54.50 Low back pain, unspecified; Z60.2 Problems related to living alone; G89.29 Other chronic pain; M19.90 Unspecified osteoarthritis, unspecified site; S80.212A Abrasion, left knee, initial encounter; W01.0XXA Fall on same level from slipping, tripping and stumbling without subsequent striking against object, initial encounter; R54 Age-related physical debility; R74.01 Elevation of levels of liver transaminase levels; I87.2 Venous insufficiency (chronic) (peripheral); R29.6 Repeated falls; Z20.822 Contact with and (suspected) exposure to COVID-19; Z66 Do not resuscitate; Z80.0 Family history of malignant neoplasm of digestive organs; Z91.19 Patient's noncompliance with other medical treatment and regimen; Z23 Encounter for immunization; Y93.89 Activity, other specified; Y92.091 Bathroom in other non-institutional residence as the place of occurrence of the external cause; Y99.8 Other external cause status; Z88.5 Allergy status to narcotic agent; Z68.24 Body mass index [BMI] 24.0-24.9, adult
CPT/HCPCS: 36415; 71045; 71260; 72131; 72192; 73564; 74177; 80053; 80061; 80202; 81001; 82150; 83036; 83605; 83735; 84100; 84145; 84443; 85007; 85025; 86705; 86706; 86709; 86803; 87040; 87081; 87340; 87635; 90471; 90715; 93005; 93306; 94640; 94760; 96361; 96374; 97110; 97116; 97161; 97530; 99285; C9803; G0378; J1644; J2270; J2543; J3370; J7030; Q9967

== ENCOUNTER → 2023-03-25 | Emergency (ER) | payer MEDICARE, MEDICAID ==
[~2023-03-25] VITALS: Ht 160 cm; Wt 59.6 kg
[~2023-03-25] MED LIST changes: -ASPI-974 PO; +CEPH-585 PO; -DEXT15DR7 RIGHTEYE; +FURO-150 PO; -HYDR-3972 PO; -HYDR-4353 PO; -IBUP-1984 PO; +IBUP-24 PO; +POTA-207 PO
[2023-03-25 09:19] VITALS: BP 159/93; PULSE 83; RESP 16; TEMP 98.5; O2SAT 97
[2023-03-25 12:17] LABS: BILIRUBIN,URINE NEGATIVE (Neg); CLARITY,URINE CLEAR (Clear); COLOR,URINE YELLOW (Yellow); GLUCOSE, URINE NEGATIVE (Neg); KETONES,URINE TRACE mg/dl (Neg); LEUKOCYTE ESTERASE ,URINE NEGATIVE (Neg); NITRITES, URINE NEGATIVE (Neg); OCCULT BLOOD,URINE TRACE-INTACT (Neg); PROTEIN,URINE NEGATIVE (Neg); UROBILINOGEN,URINE 0.2 E.U/dL (0.2-1.0)
[2023-03-25 12:18] LABS: UA COLLECTION TYPE CLN CATCH MIDSTREAM
[2023-03-25 12:21] LABS: BACTERIA,URINE FEW /HPF (Neg); MUCUS STRANDS NONE SEEN /LPF (Neg); RBC,URINE 0-2 /HPF (0-2); SQUAMOUS EPITHELIAL CELL,UR FEW /LPF (FEW); WBC,URINE NONE SEEN /HPF (0-4)
== END | disposition home or self-care (01) ==
LOC: ER 08:46
DX: L03.116 Cellulitis of left lower limb (principal); R60.0 Localized edema; M19.90 Unspecified osteoarthritis, unspecified site; Z88.5 Allergy status to narcotic agent; Z79.2 Long term (current) use of antibiotics; Z79.1 Long term (current) use of non-steroidal anti-inflammatories (NSAID)
CPT/HCPCS: 81001; 99283

== ENCOUNTER 2023-08-29 08:57 | Inpatient (IN) | payer MEDICARE, MEDICAID ==
[~2023-08-29] VITALS: Ht 161.3 cm; Wt 61.4 kg
[~2023-08-29 08:57] MED LIST changes: -FURO-150 PO; -POTA-207 PO
[2023-08-29 09:06] VITALS: TEMP 97.9
[2023-08-29 09:42] LABS: BASOPHILS # (AUTO) 0.3 X10'3 (0-0.2); BASOPHILS % (AUTO) 1.8 % (0-1); EOSINOPHILS # (AUTO) 0.1 X10'3 (0-0.9); EOSINOPHILS % (AUTO) 0.6 % (0-6); HEMATOCRIT 40.7 % (35.0-45.0); HEMOGLOBIN 13.6 g/dl (12.0-16.0); LYMPHOCYTES # (AUTO) 1.4 X10'3 (1.1-4.8); MEAN CORPUSCULAR HEMOGLOBIN 30.3 PG (27.0-31.0); MEAN CORPUSCULAR HGB CONC 33.5 g/dL (33.0-36.5); MEAN CORPUSCULAR VOLUME 90.3 FL (78-98); MEAN PLATELET VOLUME 8.4 FL (7.4-10.4); MONOCYTES # (AUTO) 0.7 X10'3 (0-0.9); MONOCYTES % (AUTO) 4.3 % (2-12); NEUTROPHILS # (AUTO) 12.8 X10'3 (1.8-7.7); NEUTROPHILS % (AUTO) 84.3 % (42-75); PLATELET COUNT 213 X10'3 (140-440); RED BLOOD COUNT 4.51 X10'6 (4.20-5.60); RED CELL DISTRIBUTION WIDTH 14.9 % (11.5-14.5); WHITE BLOOD COUNT 15.2 X10'3 (4.5-11.0)
[2023-08-29 09:55] LABS: ANION GAP 16 (8-16); BLOOD UREA NITROGEN 27 MG/DL (7-18); BUN/CREATININE RATIO 32.9 (10.0-20.0); CALCIUM 9.6 MG/DL (8.5-10.1); CHLORIDE 103 MMOL/L (99-107); CREATININE 0.82 MG/DL (0.40-0.90); GLUCOSE 92 MG/DL (70-104); POTASSIUM 3.2 MMOL/L (3.5-5.1); SODIUM 142 MMOL/L (135-145); TOTAL CARBON DIOXIDE 23.2 MMOL/L (24-32); eCRCL 47 ML/MIN; eGFR 67 ML/MIN
[2023-08-29 10:04] LABS: ALBUMIN 3.6 G/DL (3.4-5.0)
[2023-08-29 12:37] LABS: BILIRUBIN,URINE NEGATIVE (Neg); CLARITY,URINE CLOUDY (Clear); COLOR,URINE YELLOW (Yellow); GLUCOSE, URINE NEGATIVE (Neg); KETONES,URINE TRACE mg/dl (Neg); LEUKOCYTE ESTERASE ,URINE LARGE (Neg); NITRITES, URINE NEGATIVE (Neg); OCCULT BLOOD,URINE MODERATE (Neg); PROTEIN,URINE 30 mg/dl (Neg); UROBILINOGEN,URINE 0.2 E.U/dL (0.2-1.0)
[2023-08-29 12:42] LABS: UA COLLECTION TYPE CLN CATCH MIDSTREAM
[2023-08-29 12:44] LABS: BACTERIA,URINE 4+ /HPF (Neg); SQUAMOUS EPITHELIAL CELL,UR MODERATE /LPF (FEW); WBC,URINE TNTC /HPF (0-4)
[2023-08-29 12:46] LABS: WBC CLUMPS,URINE FEW /HPF (NEGATIVE)
[2023-08-29 13:59] VITALS: BP 145/85; PULSE 87; O2SAT 99
[2023-08-29 14:01] VITALS: RESP 16
[2023-08-29] MEDS ORDERED: magnesium 4gm in 100ml NS 100 ML IV PRN (14:05)
[2023-08-29] MEDS ORDERED: mag hydrox/Alum hydrox/simeth 30ml oral suspension PO PRN (14:05)
[2023-08-29] MEDS ORDERED: magnesium hydroxide 30ml (MOM) UD suspension PO PRN (14:05)
[2023-08-29] MEDS ORDERED: acetaminophen 325mg tablet PO PRN (14:05)
[2023-08-29] MEDS ORDERED: magnesium Cl slow-release 64mg tablet PO PRN (14:05)
[2023-08-29] MEDS ORDERED: magnesium 2GM in 50ml NS 50 ML IV PRN (14:05)
[2023-08-29] MEDS ORDERED: potassium Cl 40MEQ/1/2NS 520ml 520 ML IV PRN (14:05)
[2023-08-29] MEDS ORDERED: HYDROcodone/acetaminophen 5mg/325mg tablet PO PRN (14:05)
[2023-08-29] MEDS ORDERED: potassium Cl 20 mEq SR tablet PO PRN ×2 (14:05)
[2023-08-29] MEDS ORDERED: CefTRIAXone/D5W-Rocephin 1gm 50 ML IV ONE (14:05)
[2023-08-29] MEDS ORDERED: HYDROcodone/acetaminophen 10/325mg tab PO PRN (14:05)
[2023-08-29] MEDS ORDERED: ondansetron/PF 4mg/2ml inj IV PRN (14:05)
[2023-08-29] MEDS ORDERED: docusate sod 100mg capsule PO SCH (20:00)
[2023-08-29] MEDS ORDERED: K and/or MAG REPLACEMENT MC SCH (20:00)
[2023-08-30] MEDS ORDERED: CefTRIAXone/D5W-Rocephin 1gm 50 ML IV SCH (08:00)
[2023-08-30] MEDS ORDERED: enoxaparin 40mg/0.4ml syringe SUBCUT SCH (08:00)
== END 2023-08-29 16:32 | disposition left against medical advice (07) | DRG 872 ==
LOC: ER 08:58 → ED HOLD 14:06 → EDBEDREQ 15:57
PROVIDERS: ADMIT Internal Medicine; ATTEND Internal Medicine
DX: A41.9 Sepsis, unspecified organism (principal); N39.0 Urinary tract infection, site not specified; F41.9 Anxiety disorder, unspecified; I10 Essential (primary) hypertension; Z20.822 Contact with and (suspected) exposure to COVID-19; G89.29 Other chronic pain; Z53.21 Procedure and treatment not carried out due to patient leaving prior to being seen by health care provider; Z88.5 Allergy status to narcotic agent; Z79.899 Other long term (current) drug therapy
CPT/HCPCS: 36415; 71045; 80048; 81001; 83605; 84145; 85025; 87040; 87077; 87088; 87186; 87502; 87503; 87811; 99291; G0378

== ENCOUNTER 2023-12-06 07:48 | Inpatient (IN) | payer MEDICARE, MEDICAID ==
[2023-11-30 12:08] LABS: BASOPHILS % (AUTO) 0.6 % (0-1); EOSINOPHILS # (AUTO) 0.1 X10'3 (0-0.9); EOSINOPHILS % (AUTO) 1.7 % (0-6); HEMATOCRIT 41.9 % (35.0-45.0); HEMOGLOBIN 13.7 g/dl (12.0-16.0); LYMPHOCYTES # (AUTO) 2.8 X10'3 (1.1-4.8); MEAN CORPUSCULAR HEMOGLOBIN 29.7 PG (27.0-31.0); MEAN CORPUSCULAR HGB CONC 32.7 g/dL (33.0-36.5); MEAN CORPUSCULAR VOLUME 90.7 FL (78-98); MEAN PLATELET VOLUME 8.3 FL (7.4-10.4); MONOCYTES # (AUTO) 0.5 X10'3 (0-0.9); MONOCYTES % (AUTO) 6.8 % (2-12); NEUTROPHILS # (AUTO) 3.6 X10'3 (1.8-7.7); NEUTROPHILS % (AUTO) 50.9 % (42-75); PLATELET COUNT 232 X10'3 (140-440); RED BLOOD COUNT 4.62 X10'6 (4.20-5.60); RED CELL DISTRIBUTION WIDTH 14.6 % (11.5-14.5)
[2023-11-30 12:20] LABS: ALANINE AMINOTRANSFERASE 37 U/L (12-78); ALBUMIN 4.2 G/DL (3.4-5.0); ALBUMIN/GLOBULIN RATIO 1.1 (1.1-1.5); ALKALINE PHOSPHATASE 94 IU/L (46-116); ANION GAP 9 (8-16); ASPARTATE AMINO TRANSFERASE 32 U/L (10-37); BILIRUBIN,TOTAL 0.6 MG/DL (0.1-1.0); BLOOD UREA NITROGEN 19 MG/DL (7-18); BUN/CREATININE RATIO 29.2 (10.0-20.0); CALCIUM 9.7 MG/DL (8.5-10.1); CHLORIDE 103 MMOL/L (99-107); CREATININE 0.65 MG/DL (0.40-0.90); GLUCOSE 91 MG/DL (70-104); POTASSIUM 3.9 MMOL/L (3.5-5.1); SODIUM 140 MMOL/L (135-145); TOTAL CARBON DIOXIDE 28.3 MMOL/L (24-32); TOTAL PROTEIN 8.1 G/DL (6.4-8.2); eGFR 88 ML/MIN
[2023-11-30 12:46] LABS: BILIRUBIN,URINE NEGATIVE (Neg); CLARITY,URINE CLOUDY (Clear); COLOR,URINE YELLOW (Yellow); GLUCOSE, URINE NEGATIVE (Neg); KETONES,URINE TRACE mg/dl (Neg); LEUKOCYTE ESTERASE ,URINE LARGE (Neg); NITRITES, URINE POSITIVE (Neg); OCCULT BLOOD,URINE SMALL (Neg); PH,URINE 7.5 (4.8-8.0); PROTEIN,URINE NEGATIVE (Neg); UROBILINOGEN,URINE 0.2 E.U/dL (0.2-1.0)
[2023-11-30 12:50] LABS: UA COLLECTION TYPE NON-SPECIFIED
[2023-11-30 12:55] LABS: BACTERIA,URINE 4+ /HPF (Neg); SQUAMOUS EPITHELIAL CELL,UR FEW /LPF (FEW); TRANSITIONAL EPI CELLS,URINE FEW /HPF; WBC,URINE 20-30 /HPF (0-4)
[2023-11-30 13:03] LABS: AMORPHOUS PHOSPHATES 3+
[~2023-12-06] VITALS: Ht 160 cm; Wt 57.9 kg
[2023-12-06] VITALS (27 sets, daily range): BP systolic 112–177; BP diastolic 57–108; PULSE 69–95; RESP 12–28; TEMP 97.9–98.3; O2SAT 95–100
[2023-12-06] MEDS: ceFOXitin 2GM-NS 100mL ADDvant 100 ML IV ONE (05:30)
[~2023-12-06 07:48] MED LIST changes: +CENTRUM SILVER; -CEPH-585 PO
[2023-12-06] MEDS: ringers solution, lacted 1,000 ML IV SCH ×2 (08:43→15:05)
[2023-12-06] MEDS: famotidine 20mg tablet PO ONE (08:43)
[2023-12-06] MEDS ORDERED: morphine 4 MG/ML inj SYRINge IV PRN (10:35)
[2023-12-06] MEDS ORDERED: morphine 2 MG/ML inj. syringe IV PRN (10:35)
[2023-12-06] MEDS ORDERED: ringers solution, lacted 1,000 ML IV SCH (10:35)
[2023-12-06] MEDS ORDERED: meperidine/PF 25mg/ml syringe IV PRN ×2 (10:35)
[2023-12-06] MEDS: clindamycin phosphate 40gm vag cream ONE (10:37)
[2023-12-06] MEDS ORDERED: propofol inj 20 ML IV ONE (10:40)
[2023-12-06] MEDS ORDERED: rocuronium 10mg/ml inj IV ONE (10:40)
[2023-12-06] MEDS ORDERED: fentaNYL /PF 50mcg/ml 5ml ampule ONE (10:40)
[2023-12-06] MEDS ORDERED: midazolam 1 mg/ML 2ml injection ONE (10:40)
[2023-12-06] MEDS ORDERED: sevoflurane 250ml liquid IH ONE (10:49)
[2023-12-06] MEDS ORDERED: mineral oil/petrolatum ophthal oint ONE (11:08)
[2023-12-06] MEDS ORDERED: labetalol 20mg/4ml (5mg/ml) syringe IV ONE (12:16)
[2023-12-06] MEDS: BUPIVAcaine 2.5mg/ml inj 50ml vial (contains preservative) ONE (12:47)
[2023-12-06] MEDS: vasoPRESSIN 20 units/ml inj. ONE (12:48)
[2023-12-06] MEDS: neomy sulf/polymyxin B sulf. GU irrigation 1ml amp IR ONE (12:48)
[2023-12-06] MEDS ORDERED: fluoroscein sod 10% (100mg/ml) 5ml vial ONE (14:42)
[2023-12-06] MEDS ORDERED: dexamethasone sod phosphate 4mg/ml inj. ONE (14:42)
[2023-12-06] MEDS ORDERED: acetaminophen 1,000mg/100ml IV 100 ML IV ONE (14:52)
[2023-12-06] MEDS ORDERED: magnesium hydroxide 30ml (MOM) UD suspension PO PRN (15:05)
[2023-12-06] MEDS ORDERED: LORazepam 2 mg/ml vial IV PRN (15:05)
[2023-12-06] MEDS ORDERED: normal saline 500ml IV soln 500 ML IV PRN (15:05)
[2023-12-06] MEDS ORDERED: temazepam 15mg capsule PO PRN (15:05)
[2023-12-06] MEDS ORDERED: diphenhydrAMINE 50 mg/ml inj IV PRN (15:05)
[2023-12-06] MEDS: ondansetron/PF 4mg/2ml inj IV PRN ×2 (15:43→19:54)
[2023-12-06] MEDS: meperidine/PF 25mg/ml syringe IV PRN (15:50)
[2023-12-06] MEDS ORDERED: iohexol 350MG/ML 100ml bottle IV ONE (16:14)
[2023-12-06] MEDS: proCHLORperazine 10 MG/2 ml inj IV PRN (17:27)
[2023-12-06] MEDS ORDERED: CEPH-585 PO (19:35)
[2023-12-06] MEDS ORDERED: LORazepam 1 MG tablet PO PRN (19:45)
[2023-12-06] MEDS ORDERED: MULT-1133 PO (19:47)
[2023-12-06] MEDS: docusate sod 100mg capsule PO SCH (20:00)
[2023-12-06] MEDS: cephalexin 500mg capsule PO SCH (20:23)
[2023-12-06] MEDS: HYDROcodone/acetaminophen 10/325mg tab PO PRN (22:49)
[2023-12-07 02:00] VITALS: BP 104/59; PULSE 95; RESP 16; TEMP 97.8; O2SAT 95
[2023-12-07] MEDS: enoxaparin 40mg/0.4ml syringe SQ SCH (07:36)
[2023-12-07] MEDS: multivitamins, therapeutics tablet PO SCH (07:36)
[2023-12-07 08:00] VITALS: RESP 17; O2SAT 98
[2023-12-07 08:00] LABS: BASOPHILS % (AUTO) 0.2 % (0-1); EOSINOPHILS % (AUTO) 0 % (0-6); HEMATOCRIT 33.8 % (35.0-45.0); HEMOGLOBIN 11.4 g/dl (12.0-16.0); LYMPHOCYTES # (AUTO) 2.1 X10'3 (1.1-4.8); LYMPHOCYTES % (AUTO) 17.4 % (21-51); MEAN CORPUSCULAR HEMOGLOBIN 30.2 PG (27.0-31.0); MEAN CORPUSCULAR HGB CONC 33.6 g/dL (33.0-36.5); MEAN CORPUSCULAR VOLUME 89.9 FL (78-98); MEAN PLATELET VOLUME 8.2 FL (7.4-10.4); MONOCYTES # (AUTO) 0.9 X10'3 (0-0.9); MONOCYTES % (AUTO) 7.7 % (2-12); NEUTROPHILS # (AUTO) 8.8 X10'3 (1.8-7.7); NEUTROPHILS % (AUTO) 74.7 % (42-75); PLATELET COUNT 221 X10'3 (140-440); RED BLOOD COUNT 3.76 X10'6 (4.20-5.60); RED CELL DISTRIBUTION WIDTH 14.9 % (11.5-14.5); WHITE BLOOD COUNT 11.8 X10'3 (4.5-11.0)
[2023-12-07 08:27] LABS: ALBUMIN 2.9 G/DL (3.4-5.0); ANION GAP 8 (8-16); BLOOD UREA NITROGEN 17 MG/DL (7-18); BUN/CREATININE RATIO 25.4 (10.0-20.0); CALCIUM 8.3 MG/DL (8.5-10.1); CHLORIDE 103 MMOL/L (99-107); CREATININE 0.67 MG/DL (0.40-0.90); GLUCOSE 105 MG/DL (70-104); POTASSIUM 4.4 MMOL/L (3.5-5.1); SODIUM 136 MMOL/L (135-145); eCRCL 56 ML/MIN; eGFR 85 ML/MIN
[2023-12-07 18:00] VITALS: BP 125/60; PULSE 80; RESP 17; TEMP 97.5; O2SAT 97
[2023-12-07] MEDS: HYDROcodone/acetaminophen 10/325mg tab PO PRN (18:53)
[2023-12-07 20:00] VITALS: RESP 17; O2SAT 97
[2023-12-07 22:00] VITALS: BP 172/83; PULSE 96; RESP 18; TEMP 98.4; O2SAT 97
[2023-12-08] VITALS (8 sets, daily range): BP systolic 151–174; BP diastolic 74–89; PULSE 50–113; RESP 16–20; TEMP 97.3–98.6; O2SAT 95–98
[2023-12-08] MEDS: metoclopramide 5 mg/ml inj IV PRN (03:15)
[2023-12-08] MEDS ORDERED: traMADol 50MG tablet PO PRN (11:15)
[2023-12-08 13:24] LABS: BASOPHILS % (AUTO) 0.2 % (0-1); EOSINOPHILS % (AUTO) 0.1 % (0-6); HEMATOCRIT 34.4 % (35.0-45.0); HEMOGLOBIN 11.4 g/dl (12.0-16.0); LYMPHOCYTES # (AUTO) 1.6 X10'3 (1.1-4.8); LYMPHOCYTES % (AUTO) 14.7 % (21-51); MEAN CORPUSCULAR HGB CONC 33.1 g/dL (33.0-36.5); MEAN CORPUSCULAR VOLUME 90.6 FL (78-98); MEAN PLATELET VOLUME 8.4 FL (7.4-10.4); MONOCYTES # (AUTO) 0.7 X10'3 (0-0.9); MONOCYTES % (AUTO) 6.2 % (2-12); NEUTROPHILS # (AUTO) 8.6 X10'3 (1.8-7.7); NEUTROPHILS % (AUTO) 78.8 % (42-75); PLATELET COUNT 220 X10'3 (140-440); RED CELL DISTRIBUTION WIDTH 15.2 % (11.5-14.5)
[2023-12-08 13:35] LABS: ALANINE AMINOTRANSFERASE 24 U/L (12-78); ALBUMIN/GLOBULIN RATIO 0.8 (1.1-1.5); ALKALINE PHOSPHATASE 68 IU/L (46-116); ANION GAP 8 (8-16); ASPARTATE AMINO TRANSFERASE 20 U/L (10-37); BILIRUBIN,TOTAL 0.6 MG/DL (0.1-1.0); BLOOD UREA NITROGEN 9 MG/DL (7-18); BUN/CREATININE RATIO 20.9 (10.0-20.0); CALCIUM 8.5 MG/DL (8.5-10.1); CHLORIDE 103 MMOL/L (99-107); CREATININE 0.43 MG/DL (0.40-0.90); GLUCOSE 107 MG/DL (70-104); POTASSIUM 3.7 MMOL/L (3.5-5.1); SODIUM 138 MMOL/L (135-145); TOTAL CARBON DIOXIDE 26.8 MMOL/L (24-32); TOTAL PROTEIN 6.7 G/DL (6.4-8.2); eCRCL 88 ML/MIN; eGFR > 90 ML/MIN
[2023-12-08] MEDS: ringers solution, lacted 1,000 ML IV SCH (14:05)
[2023-12-09 06:25] VITALS: BP 138/82; PULSE 97; RESP 16; TEMP 97.3; O2SAT 95
[2023-12-09 09:33] VITALS: BP 153/81; PULSE 95; RESP 16; TEMP 96.9; O2SAT 96
[2023-12-09 09:45] VITALS: RESP 16
[2023-12-09 20:00] VITALS: RESP 16
[2023-12-09] MEDS: metoclopramide 5 mg/ml inj IV SCH (20:25)
[2023-12-09 22:00] VITALS: BP 176/98; RESP 16; TEMP 99; O2SAT 98
[2023-12-10 06:44] VITALS: BP 164/89; PULSE 90; RESP 14; TEMP 97.5; O2SAT 97
[2023-12-10 09:08] VITALS: RESP 16
[2023-12-10 10:00] VITALS: BP 131/71; PULSE 81; RESP 16; TEMP 97.5; O2SAT 98
[2023-12-10] MEDS: lactose-reduced food (Ensure Enlive) - 237ml bottle PO SCH (13:26)
[2023-12-10 18:00] VITALS: BP 137/73; PULSE 95; RESP 15; TEMP 97.3; O2SAT 99
[2023-12-10 22:00] VITALS: BP 138/76; PULSE 87; RESP 15; TEMP 97.6; O2SAT 98
[2023-12-11 06:00] VITALS: BP 142/80; PULSE 75; RESP 16; TEMP 97.3; O2SAT 98
[2023-12-11 07:01] LABS: BASOPHILS % (AUTO) 0.4 % (0-1); EOSINOPHILS # (AUTO) 0.1 X10'3 (0-0.9); EOSINOPHILS % (AUTO) 2.1 % (0-6); HEMATOCRIT 29.2 % (35.0-45.0); HEMOGLOBIN 9.7 g/dl (12.0-16.0); LYMPHOCYTES # (AUTO) 1.4 X10'3 (1.1-4.8); LYMPHOCYTES % (AUTO) 21.1 % (21-51); MEAN CORPUSCULAR HEMOGLOBIN 30.1 PG (27.0-31.0); MEAN CORPUSCULAR HGB CONC 33.1 g/dL (33.0-36.5); MEAN CORPUSCULAR VOLUME 90.9 FL (78-98); MEAN PLATELET VOLUME 8.4 FL (7.4-10.4); MONOCYTES # (AUTO) 0.6 X10'3 (0-0.9); MONOCYTES % (AUTO) 9.9 % (2-12); NEUTROPHILS # (AUTO) 4.3 X10'3 (1.8-7.7); NEUTROPHILS % (AUTO) 66.5 % (42-75); PLATELET COUNT 217 X10'3 (140-440); RED BLOOD COUNT 3.21 X10'6 (4.20-5.60); RED CELL DISTRIBUTION WIDTH 14.7 % (11.5-14.5); WHITE BLOOD COUNT 6.5 X10'3 (4.5-11.0)
[2023-12-11 09:00] VITALS: RESP 18; O2SAT 97
[2023-12-11 10:00] VITALS: BP 139/68; PULSE 83; RESP 18; TEMP 97.1; O2SAT 99
[2023-12-11 18:00] VITALS: BP 170/70; PULSE 89; RESP 15; TEMP 98.1; O2SAT 99
[2023-12-11 22:00] VITALS: BP 161/76; PULSE 75; RESP 15; TEMP 98.5; O2SAT 99
[2023-12-12 06:00] VITALS: BP 140/72; PULSE 68; RESP 14; TEMP 98.2; O2SAT 98
[2023-12-12 10:00] VITALS: BP 122/56; PULSE 88; RESP 18; TEMP 97.3; O2SAT 100
== END 2023-12-12 10:35 | disposition home or self-care (01) | DRG 742 ==
LOC: PRE-OP 07:48 → INTOOBSV 15:11 → OBSVTOIN 15:11 → ORTHO 4S 15:11
PROVIDERS: ADMIT Obstetrics & Gynecology Obstetrics; ATTEND Obstetrics & Gynecology Obstetrics
PROC: 0UT7FZZ Resection of Bilateral Fallopian Tubes, Via Natural or Artificial Opening With Percutaneous Endoscopic Assistance (ICD-10-PCS; 2023-12-06)
PROC: 0UT2FZZ Resection of Bilateral Ovaries, Via Natural or Artificial Opening With Percutaneous Endoscopic Assistance (ICD-10-PCS; 2023-12-06)
PROC: 0TJB8ZZ Inspection of Bladder, Via Natural or Artificial Opening Endoscopic (ICD-10-PCS; 2023-12-06)
PROC: 0UT9FZZ Resection of Uterus, Via Natural or Artificial Opening With Percutaneous Endoscopic Assistance (ICD-10-PCS; principal; 2023-12-06 10:49)
DX: N81.3 Complete uterovaginal prolapse (principal); K56.7 Ileus, unspecified; L03.116 Cellulitis of left lower limb; N81.89 Other female genital prolapse; R00.0 Tachycardia, unspecified; T45.0X5A Adverse effect of antiallergic and antiemetic drugs, initial encounter; Y83.8 Other surgical procedures as the cause of abnormal reaction of the patient, or of later complication, without mention of misadventure at the time of the procedure; Y82.8 Other medical devices associated with adverse incidents; Y92.230 Patient room in hospital as the place of occurrence of the external cause
CPT/HCPCS: 36415; 71046; 74018; 74178; 80048; 80053; 81001; 82948; 85025; 86885; 86900; 86901; 87077; 87081; 87088; 87186; 97116; 97161; 97530; A4314; A4618; A4649; A5200; A6449; A7000; G0378; J0131; J0694; J0780; J1100; J1650; J2175; J2250; J2405; J2704; J2765; J3010; J3490; J7040; J7120; Q9967